=== PATIENT | female | born 1980 | race African-American/Black ===

== ENCOUNTER 2016-06-05 11:28 | Emergency (ER) | payer OTHER ==
[~2016-06-05] VITALS: Ht 160 cm; Wt 82.0 kg
[2016-06-05 12:28] LABS: BASOPHILS % 0.5 % (0.0-2.0); DIFFERENTIAL COMMENT 0; EOSINOPHILS % 2.1 % (0.0-5.0); HEMATOCRIT. 37.8 % (36.0-48.0); HEMOGLOBIN. 12.2 g/dL (12.0-16.0); LYMPHOCYTES % 33.7 % (20.0-50.0); MEAN CORPUSCULAR HGB CONC 32.3 g/dL (31.0-37.0); MEAN CORPUSCULAR VOLUME 77.4 fL (81.0-99.0); MEAN PLATELET VOLUME 7.4 fl (7.4-10.4); MONOCYTES % 5.5 % (2.0-8.0); NEUTROPHILS % 58.2 % (40.0-76.0); PLATELET 234 x1000/uL (130-400); RED BLOOD CELL COUNT 4.89 mill/uL (4.2-5.4); RED CELL DISTRIBUTION WIDTH 15.2 % (11.6-14.6); WHITE BLOOD COUNT 6.6 x1000/uL (4.5-11.0)
[2016-06-05 12:32] LABS: CHLORIDE 106 mEq/L (98-107); INDEX HEMOLYSI 1 (1-3); INDEX ICTERIC 1 (1-4); INDEX LIPEMIC 1 (1-3)
[2016-06-05 12:40] LABS: ALANINE AMINOTRANSFERASE 12 IU/L (13-61); ALBUMIN 3.2 g/dL (3.4-5.0); ANION GAP 10; CARBON DIOXIDE 29 mEq/L (21-32); UREA NITROGEN BLOOD 7 mg/dL (7-21); eGFR > 60 mL/min (>60)
[2016-06-05 15:50] VITALS: BP 122/66
== END 2016-06-05 16:25 | disposition home or self-care (01) ==
LOC: ER 14:02
DX: M54.89 Other dorsalgia (principal); E11.65 Type 2 diabetes mellitus with hyperglycemia; Z79.4 Long term (current) use of insulin
CPT/HCPCS: 36415; 71010; 80053; 81025; 83036; 85025; 99285; Z7610

== ENCOUNTER 2016-08-10 15:40 | Emergency (ER) | payer OTHER ==
[~2016-08-10] VITALS: Ht 162.6 cm; Wt 83.0 kg
[2016-08-10] MEDS ORDERED: LIDOCAINE HCL 1% 20ML VIAL (Pyxis) INJ INFIL ONE (18:45)
[2016-08-10] MEDS ORDERED: AZITHROMYCIN 500 MG TABLET PO ONE (18:45)
[2016-08-10] MEDS ORDERED: CEFTRIAXONE SODIUM 250 MG/VIAL IM ONE (18:45)
[2016-08-10 19:25] VITALS: BP 144/73
== END 2016-08-10 19:26 | disposition home or self-care (01) ==
LOC: ER 18:00
DX: N34.2 Other urethritis (principal); A54.9 Gonococcal infection, unspecified
CPT/HCPCS: 96372; 99283; J0696; J3490; Z7610

== ENCOUNTER 2016-12-01 11:36 | Emergency (ER) | payer OTHER ==
[~2016-12-01] VITALS: Ht 160 cm; Wt 82.0 kg
[2016-12-01 11:49] VITALS: BP 136/89
== END 2016-12-01 14:00 | disposition home or self-care (01) ==
LOC: ER 12:58
DX: L29.8 Other pruritus (principal); W57.XXXA Bitten or stung by nonvenomous insect and other nonvenomous arthropods, initial encounter
CPT/HCPCS: 99282

== ENCOUNTER 2016-12-18 13:12 | Emergency (ER) | payer OTHER ==
[~2016-12-18] VITALS: Ht 162.6 cm; Wt 84.0 kg
[2016-12-18 13:57] VITALS: BP 140/92
== END 2016-12-18 20:30 | disposition left against medical advice (07) ==
LOC: ER 15:47
DX: Z53.21 Procedure and treatment not carried out due to patient leaving prior to being seen by health care provider (principal)

== ENCOUNTER 2019-12-06 19:49 | Emergency (ER) | payer OTHER ==
[~2019-12-06] VITALS: Ht 160 cm; Wt 88.0 kg
[2019-12-06 23:09] LABS: BASOPHILS % 0.4 % (0.0-2.0); EOSINOPHILS % 0.1 % (0.0-5.0); HEMATOCRIT. 37.3 % (36.0-48.0); HEMOGLOBIN. 12.6 g/dL (12.0-16.0); MEAN CORPUSCULAR HEMOGLOBIN 26.5 pg (28.0-32.0); MEAN CORPUSCULAR VOLUME 78.3 fL (81.0-99.0); MEAN PLATELET VOLUME 7.8 fl (7.4-10.4); MONOCYTES % 6.7 % (2.0-8.0); NEUTROPHILS % 82.8 % (40.0-76.0); PLATELET 247 x1000/uL (130-400); RED BLOOD CELL COUNT 4.76 mill/uL (4.2-5.4); RED CELL DISTRIBUTION WIDTH 15.5 % (11.6-14.6)
[2019-12-06 23:13] LABS: CLARITY URINE CLOUDY (CLEAR); COLOR URINE ORANGE (YELLOW); KETONES URINE 2+ (NEGATIVE); LEUKOCYTE ESTERASE URINE TRACE (NEGATIVE); NITRITE URINE NEGATIVE (NEGATIVE); OCCULT BLOOD URINE 3+ (NEGATIVE); PROTEIN URINE 2+ (NEGATIVE); SPECIFIC GRAVITY URINE 1.033 (1.005-1.030)
[2019-12-06 23:16] LABS: CHLORIDE 101 mEq/L (98-107)
[2019-12-06] MEDS ORDERED: ACETAMINOPHEN 325MG TABLET PO STA (23:25)
[2019-12-07 00:25] LABS: B-HCG QUANTITATIVE 73020 mIU/mL (<3)
[2019-12-07 00:48] VITALS: BP 133/66
== END 2019-12-07 01:02 | disposition home or self-care (01) ==
LOC: ER 19:49
DX: O20.0 Threatened abortion (principal); O34.11 Maternal care for benign tumor of corpus uteri, first trimester; Z3A.10 10 weeks gestation of pregnancy
CPT/HCPCS: 36415; 76801; 80053; 81003; 84702; 85025; 86850; 86900; 99284

== ENCOUNTER 2020-01-20 19:27 | Inpatient (IN) | payer OTHER ==
[~2020-01-20] VITALS: Ht 157.5 cm; Wt 86.6 kg
[2020-01-20] MEDS ORDERED: SODIUM CHLORIDE 0.9% 1,000 ML IV ONE (20:00)
[2020-01-20 20:12] LABS: BASOPHILS % 0.3 % (0.0-2.0); EOSINOPHILS % 0.2 % (0.0-5.0); HEMATOCRIT. 35.4 % (36.0-48.0); HEMOGLOBIN. 11.9 g/dL (12.0-16.0); LYMPHOCYTES % 17.4 % (20.0-50.0); MEAN CORPUSCULAR VOLUME 77.3 fL (81.0-99.0); MEAN PLATELET VOLUME 7.8 fl (7.4-10.4); MONOCYTES % 7.2 % (2.0-8.0); NEUTROPHILS % 74.9 % (40.0-76.0); PLATELET 290 x1000/uL (130-400); RED BLOOD CELL COUNT 4.58 mill/uL (4.2-5.4); RED CELL DISTRIBUTION WIDTH 14.4 % (11.6-14.6)
[2020-01-20 20:16] LABS: CHLORIDE 99 mEq/L (98-107)
[2020-01-20] MEDS ORDERED: DEXT 5%/LR + PITOCIN 20UNITS/L 1,000 ML IV SCH (21:00)
[2020-01-20] MEDS ORDERED: ACETAMINOPHEN WITH CODEINE 300/30MG TABLET PO PRN (21:00)
[2020-01-20] MEDS ORDERED: DIPHENHYDRAMINE 25MG CAPSULE PO PRN (21:00)
[2020-01-20] MEDS ORDERED: IBUPROFEN 400MG TABLET PO PRN (21:00)
[2020-01-20] MEDS: ACETAMINOPHEN WITH CODEINE 300/30MG TABLET PO PRN (21:43)
[2020-01-20 22:30] VITALS: BP 125/62
[2020-01-21] VITALS: BP 125/62
[2020-01-21 00:11] LABS: CHLORIDE 104 mEq/L (98-107)
[2020-01-21 00:14] LABS: BASOPHILS % 0.2 % (0.0-2.0); EOSINOPHILS % 0.1 % (0.0-5.0); HEMATOCRIT. 31.2 % (36.0-48.0); HEMOGLOBIN. 10.4 g/dL (12.0-16.0); LYMPHOCYTES % 8.9 % (20.0-50.0); MEAN CORPUSCULAR HEMOGLOBIN 25.7 pg (28.0-32.0); MEAN PLATELET VOLUME 7.6 fl (7.4-10.4); MONOCYTES % 6.1 % (2.0-8.0); NEUTROPHILS % 84.7 % (40.0-76.0); PLATELET 262 x1000/uL (130-400); RED BLOOD CELL COUNT 4.06 mill/uL (4.2-5.4); RED CELL DISTRIBUTION WIDTH 14.2 % (11.6-14.6)
[2020-01-21 00:20] LABS: INR 1.1; PARTIAL THROMBOPLASTIN TIME 38.2 sec (23.4-31.0); PROTHROMBIN TIME 11.7 sec (9.6-11.0)
[2020-01-21] MEDS: ACETAMINOPHEN WITH CODEINE 300/30MG TABLET PO PRN ×3 (03:17→14:36)
[2020-01-21 04:00] VITALS: BP 129/82
[2020-01-21] MEDS ORDERED: MIDAZOLAM HCL 2 MG/2 ML VIAL ONE ×2 (06:57→07:19)
[2020-01-21] MEDS ORDERED: FENTANYL CITRATE/PF 50MCG/ML 2ML VIAL ONE (06:57)
[2020-01-21] MEDS ORDERED: PROPOFOL 200MG/20ML VIAL IV ONE ×2 (06:57→07:22)
[2020-01-21] MEDS ORDERED: LIDOCAINE HCL/PF 1% 10 MG/ML 5ML VIAL ONE (06:57)
[2020-01-21] MEDS ORDERED: ONDANSETRON HCL 4MG/2ML INJ ONE (07:04)
[2020-01-21] MEDS ORDERED: DEXAMETHASONE 4MG/ML 1ML VIAL ONE (07:04)
[2020-01-21] MEDS ORDERED: METHYLERGONOVINE MALEATE 0.2 MG/ML ONE (07:33)
[2020-01-21] MEDS ORDERED: MORPHINE SULFATE 2 MG/ML CPJ (NOT FOR IM USE) IV PRN (07:45)
[2020-01-21] MEDS ORDERED: ACETAMINOPHEN 650MG SUPP PR PRN (07:45)
[2020-01-21] MEDS ORDERED: ONDANSETRON HCL 4MG/2ML INJ IV PRN (07:45)
[2020-01-21] MEDS ORDERED: IBUP-2028 PO (07:58)
[2020-01-21] MEDS ORDERED: T3 PO (07:58)
[2020-01-21] MEDS ORDERED: METH PO (08:02)
[2020-01-21] MEDS ORDERED: HYDROMORPHONE HCL/PF 2MG/ML CPJ ONE (08:18)
[2020-01-21] MEDS: HYDROMORPHONE HCL/PF 2MG/ML CPJ IV PRN ×2 (08:19→08:37)
[2020-01-21] MEDS: METRONIDAZOLE 500 MG PREMIX 100 ML IV SCH ×2 (10:41→16:30)
[2020-01-21 13:05] LABS: HEMATOCRIT. 27.6 % (36.0-48.0); HEMOGLOBIN. 9.1 g/dL (12.0-16.0); MEAN CORPUSCULAR HEMOGLOBIN 25.3 pg (28.0-32.0); MEAN CORPUSCULAR VOLUME 76.7 fL (81.0-99.0); MEAN PLATELET VOLUME 7.9 fl (7.4-10.4); PLATELET 273 x1000/uL (130-400); RED CELL DISTRIBUTION WIDTH 14.3 % (11.6-14.6)
[2020-01-21 13:12] LABS: CHLORIDE 102 mEq/L (98-107)
[2020-01-21 14:29] LABS: PLATELET ESTIMATE NORMAL
[2020-01-21 15:17] VITALS: BP 113/78
[2020-01-21 16:27] VITALS: BP 113/78
== END 2020-01-21 17:55 | disposition home or self-care (01) | DRG 544 ==
LOC: ER 19:27 → 6EST 21:01 → EDBEDREQ 21:06 → EDBEDREQTM 21:06 → ENRESERV 21:25 → 6EST 22:49
PROVIDERS: ADMIT Obstetrics & Gynecology; ATTEND Obstetrics & Gynecology
PROC: 10D17ZZ Extraction of Products of Conception, Retained, Via Natural or Artificial Opening (ICD-10-PCS; principal; 2020-01-21)
DX: O03.9 Complete or unspecified spontaneous abortion without complication (principal); O34.12 Maternal care for benign tumor of corpus uteri, second trimester; O99.332 Smoking (tobacco) complicating pregnancy, second trimester; F17.200 Nicotine dependence, unspecified, uncomplicated; Z3A.17 17 weeks gestation of pregnancy
CPT/HCPCS: 36415; 80048; 80051; 80053; 84550; 85025; 86850; 86900; 88307; 88309; 93005; 96365; 99285; J1100; J1170; J2210; J2250; J2405; J2590; J2704; J3010; J3490; J7030; J7040